=== PATIENT | female | born 1950 | race Caucasian/White ===

== ENCOUNTER → 2016-12-29 | Outpatient (CLI) | payer OTHER ==
[2014-03-14 15:10] VITALS: BP 131/75
[~2016-12-29] MED LIST: ASCO500T2 PO; ASPI325T4 PO; TRAM50TA PO
--- NOTE | 2016-12-29 17:21 | RAD ---
Right ankle radiographs History: Trauma, recent fall, right ankle pain. Comparison: None. Findings: AP, lateral, and oblique views of the right ankle. Osseous structures appear demineralized. No acute fracture or dislocation is seen. Mild soft tissue swelling is present. Impression: No acute osseous traumatic injury identified.
== END | disposition home or self-care (01) ==
LOC: RAD 16:22
PROVIDERS: ATTEND Podiatrist Foot & Ankle Surgery
DX: M25.571 Pain in right ankle and joints of right foot (principal); W19.XXXA Unspecified fall, initial encounter; Y93.89 Activity, other specified; Y92.89 Other specified places as the place of occurrence of the external cause; Y99.8 Other external cause status
CPT/HCPCS: 73610

== ENCOUNTER → 2017-05-13 | Outpatient (CLI) | payer OTHER ==
[2014-03-14 15:10] VITALS: BP 131/75
[~2017-05-13] MED LIST changes: -ASPI325T4 PO; +ASPI325T8 PO
--- NOTE | 2017-05-13 16:31 | RAD ---
Right foot, 3 views, 05/13/2017: History: Pain with weightbearing There is patchy bony demineralization. No fracture or dislocation is identified. There is generalized subcutaneous edema. IMPRESSION: 1. Demineralization. 2. No acute bony abnormality is detected.
== END | disposition home or self-care (01) ==
LOC: RAD 15:43
PROVIDERS: ATTEND Podiatrist Foot & Ankle Surgery
DX: M84.374A Stress fracture, right foot, initial encounter for fracture (principal)
CPT/HCPCS: 73630